=== PATIENT | female | born 1955 | race Caucasian/White ===

== ENCOUNTER 2018-01-11 06:38 | Outpatient (CLI) | payer OTHER ==
[~2018-01-11] VITALS: Ht 165.1 cm
[2018-01-11 06:54] VITALS: Ht 165.1 cm
[2018-01-11] MEDS ORDERED: BYSTOLIC5 MG PO (06:58)
[2018-01-11] MEDS ORDERED: ALDACTONE25 MG PO (06:58)
[2018-01-11] MEDS ORDERED: XYZAL5 MG PO (06:58)
[2018-01-11] MEDS ORDERED: FUROSEMIDE40 MG PO (06:58)
[2018-01-11] MEDS ORDERED: VENTOLIN HFA18 GM INH (06:59)
[2018-01-11] MEDS ORDERED: SINGULAIR10 MG PO (06:59)
[2018-01-11] MEDS ORDERED: K-DUR20 MEQ PO (06:59)
[2018-01-11] MEDS ORDERED: NORINYL PO (07:00)
[2018-01-11] MEDS ORDERED: SYMBICORT 16010.2 GM INH (07:00)
[2018-01-11] MEDS ORDERED: ENTRESTO 24 MG1 EACH PO (07:02)
[2018-01-11] MEDS ORDERED: ORTHO-NOVUM1 TAB PO (07:02)
[2018-01-11 07:17] LABS: BASOPHILS 0.3 % (0-2); EOSINOPHILS 3.8 % (0-7); HEMATOCRIT 41.6 % (36.0-48.0); HEMOGLOBIN 13.7 g/dL (12-16); IMMATURE GRANULOCYTES 1.1 % (0-5); LYMPHOCYTES 24.7 % (15-50); MCH 28.5 pg (26.0-34.0); MCHC 32.9 g/dL (31.0-37.0); MCV 86.7 fL (80.0-100.0); MEAN PLATELET VOLUME 10.1 fL (7.4-10.4); MONOCYTES 10.1 % (2-11); PLATELET COUNT 234 10x3/uL (130-400); RDW 13.1 % (11.5-14.5); WBC 10.1 10x3/uL (4.8-10.8)
[2018-01-11 07:44] LABS: ANION GAP 14.9 mmol/L (8-16); CALCIUM 8.8 mg/dL (8.5-10.1); POTASSIUM - SERUM 3.9 mmol/L (3.5-5.1)
== END 2018-01-11 08:00 | disposition home or self-care (01) ==
LOC: D.CATH 06:38
PROVIDERS: Internal Medicine Cardiovascular Disease
DX: R06.00 Dyspnea, unspecified (principal); Z01.812 Encounter for preprocedural laboratory examination; Z53.8 Procedure and treatment not carried out for other reasons